=== PATIENT | male | born 1975 | race Caucasian/White ===

== ENCOUNTER 2017-10-14 06:27 | Emergency (ER) | END 2017-10-14 09:44 | disposition home or self-care (01) ==

== ENCOUNTER 2017-11-01 05:31 | Inpatient (IN) | END 2017-11-04 19:00 | disposition home or self-care (01) | DRG 520 ==

== ENCOUNTER 2018-10-24 05:18 | Inpatient (IN) | payer OTHER ==
[2018-10-18 12:29] VITALS: BMI 29.4
[2018-10-24] VITALS (21 sets, daily range): BP systolic 83–138; BP diastolic 45–74; PULSE 78–106; RESP 14–20; Ht 188 cm; Wt 105.2 kg
[~2018-10-24] VITALS: Ht 188 cm; Wt 105.2 kg
[~2018-10-24 05:18] MED LIST: BUPR100T14 PO; BUSP10TA2 PO; GLIP10TA14 PO; INSU300I SQ; METF100010 PO
[2018-10-24] MEDS ORDERED: THROMBIN (BOVINE) 5,000 UNIT VIAL TP ONE (06:46)
[2018-10-24] MEDS ORDERED: GELATIN SIZE 100 SPONGE ONE (06:46)
[2018-10-24] MEDS ORDERED: POLYMYXIN/BACITRACIN 1L IRRIG ONE (06:47)
[2018-10-24] MEDS ORDERED: BUPIVACAINE 0.25% (MPF) 30 ML INJ ONE (06:47)
--- NOTE | 2018-10-24 06:57 | HPN ---
Date/Time of Note Date/Time of Note DATE: 10/24/18 TIME: 06:57 Interval H&P Admission Note Pt. seen H&P reviewed: No system changes ADEN BLAND MD Oct 24, 2018 06:57
--- NOTE | 2018-10-24 06:58 | PREAC ---
Date/Time of Note Date/Time of Note DATE: 10/24/18 TIME: 06:57 Anesthesia Eval and Record Evaluation Time Pre-Procedure Interview DATE: 10/24/18 TIME: 06:57 Age 43 Sex male NPO: 8 hrs Preoperative diagnosis lumbar radiculopathy Planned procedure redo lumbar microdiscectomy Past Medical History Past Medical History: Includes Endo: Diabetes Neuro: Peripheral neuropathy Psych: Depression, Anxiety Surgery & Anesthesia Issues No known issue Meds Anticoagulation: No Beta Madai within 24 hr: No Reason Beta Madai not given: Pt. not on B-Madai Reported Medications Buspirone Hcl* (Buspirone Hcl*) 10 Mg Tab, 10 MG PO BID, TAB 10/18/18 Bupropion Hcl* (Bupropion Hcl*) 100 Mg Tablet, 100 MG PO BID, TAB 10/18/18 Insulin Glargine,Hum.rec.anlog (Felecia Barron) 300 Unit/1 Ml Insuln.pen, 10 UNIT SQ HS, EA 10/28/17 Glipizide* (Glipizide*) 10 Mg Tablet, 10 MG PO TID, TAB 10/28/17 Metformin Hcl* (Metformin Hcl*) 1,000 Mg Tablet, 1000 MG PO BID, #30 TAB 10/28/17 Discontinued Reported Medications Amoxicillin* (Amoxicillin*) 500 Mg Cap, 500 MG PO BID, #20 CAP 11/01/17 Current Medications Cefazolin Sodium/ Dextrose 50 ml @ 100 mls/hr PRE-OP ONCE IVPB Last administered on 10/24/18at 06:35; Admin Dose 100 MLS/HR; Start 10/24/18 at 07:00; Stop 10/24/18 at 07:29 Lactated Ringer's 1,000 ml @ 0 mls/hr Q0M ONCE IV* Last administered on 10/24/18at 06:37; Admin Dose 25 MLS/HR; Start 10/24/18 at 07:00; Stop 10/24/18 at 07:01 Meds reviewed: Yes Allergies Coded Allergies: No Known Allergy (Unverified , 11/01/17) Allergies Reviewed: Yes Labs/Studies Labs Reviewed: Reviewed by anesthesiologist Blood Bank Test 10/24/18 06:23 Blood Product Summary Counts test: N/A Studies: ECG Pre-procedure Exam Last vitals Vital Signs Date Temp Pulse Resp B/P (MAP) Pulse Ox O2 O2 Flow FiO2 Time Delivery Rate 10/24/18 98.4 90 16 101/72 98 Room Air 05:30 (82) Airway: Adequate mouth opening, Adequate thyromental dist Mallampati: Mallampati III Teeth: Normal Lung: Normal Heart: Normal ASA Physical Status ASA physical status: 2 Emergency: None Planned Anesthetic General/MAC: ETT Planned Pain Management Parenteral pain med, Local by surgeon Pre-operative Attestations Prior to commencing anesthesia and surgery, the patient was re-evaluated, there was verification of: *The patient's identity *The results of appropriate recent lab work and preoperative vital signs *The above evaluation not changing prior to induction *Anesthetic plan, risk benefits, alternative and complications discussed with patient/family; questions answered; patient/family understands, accepts and wishes to proceed. JUANITA BAGLEY MD Oct 24, 2018 06:57
[2018-10-24] MEDS ORDERED: MEPERIDINE 25 MG INJ IV PRN (07:00)
[2018-10-24] MEDS ORDERED: LABETALOL HCL 20MG INJ IV PRN (07:00)
[2018-10-24] MEDS ORDERED: DIPHENHYDRAMINE 50 MG INJ IV PRN (07:00)
[2018-10-24] MEDS ORDERED: LORAZEPAM 2 MG INJ IV PRN (07:00)
[2018-10-24] MEDS ORDERED: FENTAnyl 50 MCG/ML VIAL ONE (07:00)
[2018-10-24] MEDS ORDERED: LEVALBUTEROL (NEB) 1.25 MG/0.5 ML AMP HHN PRN (07:00)
[2018-10-24] MEDS ORDERED: FENTAnyl 50 MCG/ML VIAL IV PRN ×2 (07:00)
[2018-10-24] MEDS ORDERED: hydrALAzine 20 MG INJ IV PRN (07:00)
[2018-10-24] MEDS ORDERED: MIDAZOLAM 1 MG/ML 2 ML INJ IV PRN (07:00)
[2018-10-24] MEDS ORDERED: ONDANSETRON 4 MG INJ IV PRN (07:00)
[2018-10-24] MEDS ORDERED: HYDROmorphONE 1 MG/5 ML IV SYRINGE IV PRN ×3 (07:00)
[2018-10-24] MEDS ORDERED: CEFAZOLIN 2 GM/50 ML (PMX) 50 ML IVPB ONE (07:00)
[2018-10-24] MEDS ORDERED: IPRATROPIUM (NEB) 0.5 MG/2.5 ML AMP HHN PRN (07:00)
[2018-10-24] MEDS ORDERED: HALOPERIDOL 5 MG INJ IV PRN (07:00)
[2018-10-24] MEDS ORDERED: LACTATED RINGER'S 1,000 ML IV* ONE (07:00)
[2018-10-24] MEDS ORDERED: ROCURONIUM 50 MG INJ ONE (07:01)
[2018-10-24] MEDS ORDERED: MIDAZOLAM 1 MG/ML 2 ML INJ ONE (07:01)
[2018-10-24] MEDS ORDERED: PROPOFOL 20 ML ONE ×2 (07:01→07:16)
[2018-10-24] MEDS ORDERED: METOCLOPRAMIDE 10 MG INJ ONE (07:01)
[2018-10-24] MEDS ORDERED: LIDOCAINE 2% (SDV) 5 ML INJ ONE (07:01)
[2018-10-24] MEDS ORDERED: SUCCINYLCHOLINE CHLORIDE 100 MG/5 ML SYG IV ONE (07:01)
[2018-10-24] MEDS ORDERED: ONDANSETRON 4 MG INJ ONE (07:01)
[2018-10-24] MEDS ORDERED: DEXAMETHASONE 4 MG/ML 5 ML INJ ONE (07:02)
[2018-10-24] MEDS ORDERED: INSU300I SQ (07:03)
[2018-10-24] MEDS ORDERED: PHENYLephrine (100 MCG/ML) 10ML SYG ONE (07:36)
[2018-10-24] MEDS ORDERED: SURGIFOAM POWDER 1 GM KIT ONE (09:02)
[2018-10-24] MEDS ORDERED: SUGAMMADEX SODIUM 200 MG/2 ML VIAL IV ONE (09:22)
--- NOTE | 2018-10-24 10:07 | PAC ---
Date/Time of Note Date/Time of Note DATE: 10/24/18 TIME: 10:07 Post-Anesthesia Notes Post-Anesthesia Note Last documented vital signs Vital Signs Date Temp Pulse Resp B/P (MAP) Pulse Ox O2 O2 Flow FiO2 Time Delivery Rate 10/24/18 98.1 10:04 10/24/18 90 16 101/72 98 Room Air 05:30 (82) Activity: WNL Respiratory function: WNL Cardiovascular function: WNL Mental status: Baseline Pain reasonably controlled: Yes Hydration appropriate: Yes Nausea/Vomiting absent: Yes JUANITA BAGLEY MD Oct 24, 2018 10:07
[2018-10-24] MEDS: SOD CHLORIDE 0.45% 1,000 ML IV SCH ×2 (10:14→20:13)
--- NOTE | 2018-10-24 10:24 | SIPON ---
Date/Time of Note Date/Time of Note DATE: 10/24/18 TIME: 10:21 Operative Report Preoperative Diagnosis Recurrent disc herniation L4-5 and L5-S1 on the left with stenosis Postoperative Diagnosis Same Operation/Procedure Performed Redo central decompressive laminectomy at L4 Redo central decompressive laminectomy at L5 Redo microdiscectomy L4-5 on the left Redo microdiscectomy at L5-S1 on the left Medial facetectomy and foraminotomy at L4-5 and L5-S1 bilaterally Revision of scar (10 cm) Lateral localizing lumbar radiographs (1) Intraoperative nerve monitoring (3 hours) Surgeon see signature line assisted sales representative Jamie Rodrigez MD Anesthesia: general Estimated blood loss: 50 - 100 ml's Transfusion Required none Specimen Disc material L4-5 and L5-S1 Spinous processes of L4 and L5 Grafts/Implants none Complications none ADEN BLAND MD Oct 24, 2018 10:24
[2018-10-24] MEDS ORDERED: BETHANECHOL 25 MG TAB PO PRN (10:30)
[2018-10-24] MEDS ORDERED: ACETAMINOPHEN 325 MG TAB PO PRN (10:30)
[2018-10-24] MEDS ORDERED: DIAZEPAM 5 MG/ML SYG IM PRN (10:30)
[2018-10-24] MEDS ORDERED: PROCHLORPERAZINE 10 MG TAB PO PRN (10:30)
[2018-10-24] MEDS ORDERED: TRIMETHOBENZAMIDE 100 MG/ML VIAL IM PRN (10:30)
[2018-10-24] MEDS ORDERED: NALOXONE (0.4 MG/ML) INJ IV PRN (10:30)
[2018-10-24] MEDS ORDERED: HYDROmorphONE 0.2 MG/ML PCA IV SCH (10:30)
[2018-10-24] MEDS ORDERED: AL HYDROX/MG HYDROX/SIMETH 30 ML CUP PO PRN (10:30)
[2018-10-24] MEDS ORDERED: NACL 0.9% 3 ML SYG IV SCH (10:30)
[2018-10-24] MEDS ORDERED: CEPASTAT LOZENGE MT PRN (10:30)
[2018-10-24] MEDS ORDERED: DIPHENHYDRAMINE 50 MG CAP PO PRN (10:30)
[2018-10-24] MEDS ORDERED: ZOLPIDEM 5 MG TAB PO PRN (10:30)
[2018-10-24] MEDS ORDERED: HYDROCODONE/APAP (5/325) TAB PO PRN ×2 (10:30)
[2018-10-24] MEDS: CEFAZOLIN 1 GM/50 ML (PMX) 50 ML IVPB SCH ×3 (11:32→23:48)
--- NOTE | 2018-10-24 11:33 | OPR ---
DATE OF OPERATION: 10/24/2018 PREOPERATIVE DIAGNOSES: 1. 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 2. Lumbar spinal stenosis at L4 and L5. POSTOPERATIVE DIAGNOSES: 1. 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 2. Lumbar spinal stenosis at L4 and L5. OPERATION PERFORMED: 1. Redo central decompressive laminectomy at L4. 2. Redo central decompressive laminectomy at L5. 3. Redo microdiskectomy L4-5 on the left. 4. Redo microdiskectomy L5-S1 on the left. 5. Medial facetectomy and foraminotomy, L4-L5 and L5-S1 bilaterally. 6. Revision of scar (10 cm). 7. Lateral localized lumbar radiograph (1). 8. Intraoperative nerve monitoring (3 hours). SURGEON: Dennis Salgado MD [employer] OPERATOR: Miguel Rodrigez MD ANESTHESIA: Endotracheal. ANESTHESIOLOGIST: Dr. Barkley. ESTIMATED BLOOD LOSS: 60 mL, none replaced. DRAINS: Two medium Hemovac drains employed. COMPLICATIONS: None. PERTINENT HISTORY AND PHYSICAL: This is a 43-year-old male with persistent recurrent back and left l eg pain which has been unrelieved by conservative management. He has undergone a number of diagnosti c studies including an MRI of the lumbar spine, which demonstrated recurrent disk herniations at L4-L 5 and L5-S1 on the left, along with canal stenosis at both levels. Treatment options were discussed with the patient, who elected to proceed with surgery. OPERATIVE FINDINGS AT SURGERY: Recurrent disk herniations at L4-L5 and L5-S1 on the left were confir med, along with moderate central stenosis and lateral recess stenosis at both levels. The baseline i ntraoperative nerve monitoring revealed decrease in the left L4 potential of 30%, the left L5 potenti al of 40%. These all returned to normal at the completion of surgery. OPERATIVE PROCEDURE: With the patient in supine position after satisfactory induction of general end otracheal anesthesia by Dr. Barkley, the patient was turned to the prone kneeling position over the [facility] frame. All pressure points were carefully padded. Back was prepped and draped in usual steri le fashion. Athrombic pumps were applied to the legs below the knees to prevent venous stasis during and after procedure. An indwelling Ivory catheter was also placed preoperatively to facilitate blad suni drainage during and after procedure. A 10 cm incision carried out midline through the previous scar after skin was infiltrated with 0.25% Marcaine without epinephrine for postoperative analgesia. Superficial retractors were placed and hem ostasis secured with electrocautery. Throughout the procedure, copious amounts of antibacterial irri gating solution used to periodically irrigate the wound. The fascia was incised in midline with a ho t knife and bilateral subperiosteal dissection carried out at L4 and L5. Deep retractors were placed and deep hemostasis secured with electrocautery. An intraoperative radiograph was then taken with K ocher clamps placed in what was felt to be the spinous process of L4 and L5. This was confirmed on t he x-ray. A central decompressive laminectomy was then carried out using a Rashawn right-angle bone rongeur, Leksell rongeur, Kerrison punches and curettes at L4-L5 and L5-S1. The operating microscope was then moved into place. A medial facetectomy and foraminotomy was accomplished using small hand osteotome mallet, Kerrison punches and curettes. The L5 root on the left was then mobilized medially and protected with D'Errico nerve retractor using microdissection technique. This revealed a small recurrent disk herniation at L4-L5 on the left. A 15 blade knife used to cut a rectangular window in the annulus and posterior longitudinal ligament. Multiple degenerative disk fragments were harveste d with pituitary rongeurs and sent to laboratory for pathologic study. Additional fragments were brandon vested using Aurora curettes. A thorough search of the floor of the canal was made with an arthrosc opic probe. No additional fragments were encountered. The epidural hemostasis was secured with bipo lar electrocautery on low setting. The anesthesiologist was asked to perform a Valsalva maneuver at 40 mmHg. No spinal fluid leak was noted. Attention was then turned to the L5-S1 level where the S1 root was mobilized medially on the left and protected with D'Errico nerve retractor using microdissection technique. This revealed a recurrent disk herniation at L5-S1 on the left. A 15 blade knife used to cut and window in the annulus and pos terior longitudinal ligament and multiple degenerative disk fragments were harvested with pituitary r ongeurs and sent to laboratory for pathologic study. Additional fragments were harvested using Epste in curettes. A thorough search of the floor of the canal was made with an arthroscopic probe. No ad ditional fragments were encountered. The epidural hemostasis was secured with bipolar electrocautery on a low setting. A second Valsalva maneuver at 40 mmHg revealed no leakage of spinal fluid. The w ound was then closed in layers over 2 medium Hemovac drains, one below the fascia, one above the fasc ia, using #1 Stratafix suture in deep parallel musculature and deep fascia of the back, 2-0 interrupt ed Vicryl sutures and 2-0 Stratafix sutures in subcu tissue, and a 4-0 Vicryl subcuticular cosmetic c losing suture on the skin. Dermabond and sterile compressive dressings were applied. Patient tolera jenifer the procedure well, was then turned to supine position on his bed and extubated by Dr. Barkley. Fabrice gomes was transported to the recovery room in satisfactory condition. At the conclusion of procedure, sp onge, instrument, and needle counts were all correct. NEED FOR ENGRAVER RUBBER: During this spinal surgical procedure, my assistant professor of history was used to retract and protect the spinal nerves and dural sac. My assistant professor of history also employed the suction catheters to mike tiffanie blood from the surgical field to improve visualization of the neural structures. The assistant professor of history was medically necessary to facilitate the completion of the surgery in a safe and expeditious manner. State of [place] regulations, as well as hospital bylaws, preclude the use of non-licensed health care personnel such as operating room technicians, to perform these functions. Throughout the procedure, neural monitoring was carried out by [employer] [facility] including EMG, SSEP a nd MEP monitoring of the L3, L4, L5 and S1 nerve roots bilaterally, along with spinal cord potentials . These were interpreted in real time by Dr. Ady Christopher. Dictated By: DENNIS SALGADO MD TM/NTS Conf#: [id number] DID#: [id number] CC: MIGUEL RODRIGEZ MD; ASTRID SANCHEZ MD;*[facility]*
[2018-10-24] MEDS ORDERED: [UNRECOGNIZED DRUG - OTHER] SQ SCH (14:00)
[2018-10-24] MEDS ORDERED: INSULIN GLARGINE HUM REC ANLOG 14 UNIT SQ SCH (14:00)
[2018-10-24] MEDS: ONDANSETRON 4 MG INJ IV PRN ×2 (14:09→20:14)
[2018-10-24] MEDS ORDERED: GLUCOSE GEL 15 GRAM TUBE PO PRN ×2 (14:30)
[2018-10-24] MEDS ORDERED: GLUCOSE GEL 15 GRAM TUBE BUCCAL PRN (14:30)
[2018-10-24] MEDS ORDERED: GLUCAGON 1 MG INJ IM PRN (14:30)
[2018-10-24] MEDS ORDERED: DEXTROSE 50% 50 ML SYRINGE IV PRN ×2 (14:30)
--- NOTE | 2018-10-24 14:58 | CONS ---
DATE OF ADMISSION: 10/24/2018 DATE OF CONSULTATION: 10/24/2018 TYPE OF CONSULTATION: Medical. Thank you, Dr. Bland, for asking me to participate in medical management of this patient. REASON FOR CONSULTATION: To manage the patient's diabetes mellitus. HISTORY OF PRESENT ILLNESS: This 43-year-old man injured his back at work in 06/2015. He had a lumb ar spine surgery last year; however, he continues to have low back pain with radiation down his left leg. The patient has failed medical therapy and is to undergo surgery by Dr. Bland. Has failed m edical therapy and is now postop lumbar spine surgery by Dr. Bland. The patient is awake and aler t. He denies chest pain or shortness of breath. He is having some incisional back pain and is being treated with pain medication. PAST MEDICAL HISTORY: Remarkable for type 2 diabetes mellitus. He does have a history of a callus o n his left heel that took 6 months to heal. He did have a noninvasive lower extremity arterial study which was normal. 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 SOCIAL HISTORY: Patient is . He does not smoke, drinks alcohol socially. PHYSICAL EXAMINATION: GENERAL: At this time reveals a well-developed man in no apparent distress. VITAL SIGNS: Temperature 98, pulse of 99, respirations 18, blood pressure 119/71, O2 saturation 98% on room air. HEENT: Head normocephalic. Eyes: Extraocular muscles intact. NOSE AND MOUTH: Normal. NECK: Supple. No neck vein distention. LUNGS: Clear to auscultation. HEART: Regular rhythm. No murmurs, gallops or rubs. ABDOMEN: Soft, nontender. EXTREMITIES: No peripheral edema. IMPRESSION: This patient is stable after having a lumbar spine surgery today. He underwent redo of a central decompressive laminectomy at L4 and at L5 and a redo microdiscectomy at the L4-L5 level on the left and the L5-S1 level on the left. He is doing well. He is awake and alert. He does have so me low back incisional pain which is being treated. PLAN: 1. Resume some routine medications. 2. Check labs in the morning. 3. Insulin sliding scale to control blood sugar. 4. Lumbosacral spine surgery protocol. 5. I will follow the patient along with you medically. Dictated By: ASTRID SANCHEZ MD ND/NTS Conf#: [id number] DID#: [id number] CC: ADEN BLAND MD;*End*
[2018-10-24] MEDS ORDERED: INSULIN GLARGINE [LANTus] (100 UNITS/ML) SYG SC SCH (15:00)
[2018-10-24] MEDS: INSULIN ASPART [NOVOLOG] 3 ML PEN SC SCH ×2 (18:02→21:35)
[2018-10-24] MEDS: RANITIDINE 150 MG TAB PO SCH (20:14)
[2018-10-24] MEDS: BUSPIRONE 10 MG TAB PO SCH (20:19)
[2018-10-24] MEDS: BUPROPION 100 MG TAB PO SCH (20:19)
[2018-10-24] MEDS: INSULIN GLARGINE [LANTus] (100 UNITS/ML) SYG SC SCH (22:04)
[2018-10-25 04:17] VITALS: BP 97/64; PULSE 89; RESP 16
[2018-10-25] MEDS: CEFAZOLIN 1 GM/50 ML (PMX) 50 ML IVPB SCH (05:28)
[2018-10-25] MEDS: SOD CHLORIDE 0.45% 1,000 ML IV SCH ×2 (06:14→16:14)
--- NOTE | 2018-10-25 07:07 | PN ---
Date/Time of Note Date/Time of Note DATE: 10/25/18 TIME: 07:05 Assessment/Plan Lines/Catheters IV Catheter Type (from Nrsg): Saline Lock Ivory in Place (from Nrsg): Yes Subjective 24 Hr Interval Summary The patient is postop day #1 following a redo decompressive laminectomy at L4 and L5 with microdiscectomy L4-5 and L5-S1 on the left. He is resting comfortably, but complaining of low back pain. Neurovascular structures are intact distally. A.m. lab work is unremarkable with exception of hyperglycemia. Hemovac drainage since midnight was 50 cc and it will be left in place. He will be mobilized as tolerated by PT. He has a Ivory catheter in place which will be discontinued. Exam/Review of Systems Vital Signs Vitals Vital Signs Date Temp Pulse Resp B/P (MAP) Pulse Ox O2 O2 Flow FiO2 Time Delivery Rate 10/25/18 18 05:00 10/25/18 98.7 89 97/64 (75) 98 Room Air 04:17 Intake and Output 10/24/18 10/24/18 10/25/18 1515:00 23:00 07:00 IntakeIntake Total 2550 ml 175 ml 600 ml OutputOutput Total 190 ml 2130 ml 3250 ml BalanceBalance 2360 ml -1955 ml -2650 ml Results Result Diagram: 10/25/18 0449 10/25/18 0449 ADEN BLAND MD Oct 25, 2018 07:07
[2018-10-25] MEDS ORDERED: BETHANECHOL 25 MG TAB PO PRN (08:00)
[2018-10-25] MEDS: DIAZEPAM 5 MG TAB PO PRN ×3 (08:07→13:19)
[2018-10-25] MEDS: ONDANSETRON 4 MG INJ IV PRN ×2 (08:08→15:29)
[2018-10-25 08:29] VITALS: BP 107/76; PULSE 85; RESP 18
[2018-10-25] MEDS: BUSPIRONE 10 MG TAB PO SCH ×3 (09:00→21:00)
[2018-10-25] MEDS: BUPROPION 100 MG TAB PO SCH ×3 (09:00→21:00)
[2018-10-25] MEDS: RANITIDINE 150 MG TAB PO SCH ×2 (09:36→20:49)
[2018-10-25] MEDS: ASCORBIC ACID 500 MG TAB PO SCH ×2 (09:37→20:49)
[2018-10-25] MEDS: FERROUS SULFATE (EC) 325 MG TAB PO SCH ×3 (09:38→20:48)
[2018-10-25] MEDS: DOCUSATE SODIUM 100 MG CAP PO SCH ×2 (09:38→20:48)
[2018-10-25] MEDS: INSULIN ASPART [NOVOLOG] 3 ML PEN SC SCH ×5 (09:44→21:00)
--- NOTE | 2018-10-25 14:06 | CONS ---
Assessment/Plan Assessment/Plan Hospital Course (Demo Recall) 1.This patient is now 1 day postop a lumbar sacral spine surgery. He is having back and left leg pain. He is being treated with [place]. 2 his vital signs and laboratory tests are stable. He has been afebrile. 3 physical therapy as tolerated. I will restart the Metformin as his serum cre atinine is normal. Consultation Date/Type/Reason Admit Date/Time Oct 24, 2018 at 05:18 Initial Consult Date Type of Consult Medicine Date/Time of Note DATE: 10/25/18 TIME: 14:03 24 HR Interval Summary Free Text/Dictation This patient is now 1 day postop a lumbar sacral spine surgery. He is awake and alert. He is still having some incisional back pain. He got up earlier and became dizzy and had some nausea with vomiting. He is now off the Dilaudid CASINO FLOOR RUNNER. Exam/Review of Systems Exam Vitals Vital Signs Date Temp Pulse Resp B/P (MAP) Pulse Ox O2 O2 Flow FiO2 Time Delivery Rate 10/25/18 98.2 85 18 107/76 99 Room Air 08:29 (86) Intake and Output 10/24/18 10/24/18 10/25/18 1515:00 23:00 07:00 IntakeIntake Total 2550 ml 175 ml 600 ml OutputOutput Total 190 ml 2130 ml 3250 ml BalanceBalance 2360 ml -1955 ml -2650 ml Constitutional: alert, oriented, well developed Respiratory: clear to auscultation, normal air movement Cardiovascular: regular rate and rhythm Gastrointestinal: soft, non-tender Musculoskeletal: nl extremities to inspection Results Result Diagram: 10/25/18 0449 10/25/18 0449 Results 24hrs Laboratory Tests Test 10/24/18 14:18 10/24/18 17:52 10/24/18 21:28 10/25/18 01:59 Bedside Glucose 206 247 H 240 H 235 H Test 10/25/18 04:49 10/25/18 09:33 10/25/18 09:45 10/25/18 12:55 Hemoglobin 13.4 L Hematocrit 37.5 L Sodium Level 138 Potassium Level 4.6 Chloride Level 103 Carbon Dioxide Level 27 Anion Gap 8 Blood Urea Nitrogen 15 Creatinine 0.65 Est Glomerular > 60 Filtrat Rate mL/min Glucose Level 192 Calcium Level 8.8 Bedside Glucose 139 202 Urine Color YELLOW Urine Clarity CLEAR Urine pH 5.0 Urine Specific 1.018 [place] Urine Ketones NEGATIVE Urine Nitrite NEGATIVE Urine Bilirubin NEGATIVE Urine Urobilinogen NEGATIVE Urine Leukocyte NEGATIVE Esterase Urine Microscopic 1 RBC Urine Microscopic 2 WBC Urine Mucus FEW A Urine Hemoglobin 1+ H Urine Glucose 1+ H Urine Total Protein NEGATIVE Medications Medication Current Medications Sodium Chloride 1,000 ml @ 100 mls/hr Q10H IV Last administered on 10/24/18at 20:13; Admin Dose 100 MLS/HR; Start 10/24/18 at 10:14 Acetaminophen/ Hydrocodone Bitart ([place] (5/325)) 1 tab Q4H PRN PO .PAIN 1-5; Start 10/24/18 at 10:30 Acetaminophen/ Hydrocodone Bitart ([place] (5/325)) 2 tab Q4H PRN PO .PAIN 6-10 Last administered on 10/25/18at 11:19; Admin Dose 2 TAB; Start 10/24/18 at 10:30 Zolpidem Tartrate (Ambien) 5 mg HS PRN PO .INSOMNIA; Start 10/24/18 at 10:30 Prochlorperazine (Compazine) 10 mg Q4H PRN PO NAUSEA/VOMITING; Start 10/24/18 at 10:30 Trimethobenzamide HCl (Tigan) 200 mg Q4H PRN IM NAUSEA/VOMITING Last administered on 10/24/18at 19:09; Admin Dose 200 MG; Start 10/24/18 at 10:30 Ondansetron HCl (Zofran Inj) 4 mg Q6H PRN IV NAUSEA/VOMITING Last administered on 10/25/18at 08:08; Admin Dose 4 MG; Start 10/24/18 at 10:30 Al Hydrox/Mg Hydrox/Simethicone (Mag-Al Plus) 15 ml Q4H PRN PO .CONSTIPATION; Start 10/24/18 at 10:30 Docusate Sodium (Colace) 100 mg BID PO Last administered on 10/25/18at 09:38; Admin Dose 100 MG; Start 10/25/18 at 09:00 Acetaminophen (Tylenol Tab) 650 mg Q4H PRN PO TEMP GREATER THAN 101F OR BEAVERS; Start 10/24/18 at 10:30 Ascorbic Acid (Vitamin C) 1,000 mg BID PO Last administered on 10/25/18at 09:37; Admin Dose 1,000 MG; Start 10/25/18 at 09:00 Ferrous Sulfate (Ferrous Sulfate (Ec)) 325 mg TID PO Last administered on 10/25/18at 13:02; Admin Dose 325 MG; Start 10/25/18 at 09:00 Ranitidine HCl (Zantac) 150 mg BID PO Last administered on 10/25/18at 09:36; Admin Dose 150 MG; Start 10/24/18 at 21:00 Diazepam (Valium) 5 mg Q4H PRN PO .MUSCLE SPASM Last administered on 10/25/18at 13:19; Admin Dose 5 MG; Start 10/24/18 at 10:30 Diazepam (Valium) 5 mg Q4H PRN IM .MUSCLE SPASM; Start 10/24/18 at 10:30 Phenol (Cepastat Lozenge) 1 lozenge PRN PRN MT .SORE THROAT; Start 10/24/18 at 10:30 Diphenhydramine HCl (Benadryl) 50 mg Q6H PRN PO .PRURITUS; Start 10/24/18 at 10:30 IV Flush (NS 3 ml) 3 ml PER PROTOCOL IV ; Start 10/24/18 at 10:30 Hydromorphone HCl (Dilaudid CASINO FLOOR RUNNER) Q4PCA IV Last administered on 10/24/18at 10:44; Admin Dose 6 MG; Start 10/24/18 at 10:30 Naloxone HCl (Narcan) 0.2 mg Q2M PRN IV RR 8 BREATHS/MIN OR LESS; Start 10/24/18 at 10:30 Bupropion HCl (Wellbutrin) 100 mg BID PO ; Start 10/24/18 at 21:00 Buspirone HCl (Buspar) 10 mg BID PO ; Start 10/24/18 at 21:00 Insulin Aspart (Novolog Insulin Pen) NOVOLOG *MILD* ALGORITHM WITH MEALS BEDTIME SC Last administered on 10/25/18at 13:02; Admin Dose 2 UNIT; Start at 17:55 Miscellaneous Information 1 ea NOTE XX ; Start 10/24/18 at 14:30 Glucose (Glutose) 15 gm Q15M PRN PO DECREASED GLUCOSE; Start 10/24/18 at 14:30 Glucose (Glutose) 22.5 gm Q15M PRN PO DECREASED GLUCOSE; Start 10/24/18 at 14:30 Dextrose (D50w Syringe) 25 ml Q15M PRN IV DECREASED GLUCOSE; Start 10/24/18 at 14:30 Dextrose (D50w Syringe) 50 ml Q15M PRN IV DECREASED GLUCOSE; Start 10/24/18 at 14:30 Glucagon (Glucagen) 1 mg Q15M PRN IM DECREASED GLUCOSE; Start 10/24/18 at 14:30 Glucose (Glutose) 15 gm Q15M PRN BUCCAL DECREASED GLUCOSE; Start 10/24/18 at 14:30 Insulin Glargine (Lantus) 14 units QHS SC Last administered on 10/24/18at 22:04; Admin Dose 14 UNITS; Start 10/24/18 at 22:00 Bethanechol Chloride (Urecholine) 25 mg PRN PRN PO UNABLE TO VOID; Start 10/25/18 at 08:00 ASTRID SANCHEZ MD Oct 25, 2018 14:06
[2018-10-25 15:02] VITALS: BP 115/79; PULSE 100; RESP 18
[2018-10-25] MEDS: OXYCODONE/ACETAMINOPHEN (10/325) TAB PO PRN ×2 (15:29→22:12)
[2018-10-25] MEDS ORDERED: OXYCODONE/ACETAMINOPHEN (5/325) TAB PO PRN (15:30)
[2018-10-25] MEDS ORDERED: metFORMIN 500 MG TAB PO SCH (17:55)
[2018-10-25 19:14] VITALS: BP 110/68; PULSE 100; RESP 18
[2018-10-25] MEDS: INSULIN GLARGINE [LANTus] (100 UNITS/ML) SYG SC SCH (20:55)
[2018-10-26 01:34] VITALS: BP 129/60; PULSE 64; RESP 16
[2018-10-26] MEDS: OXYCODONE/ACETAMINOPHEN (10/325) TAB PO PRN ×3 (01:39→16:13)
[2018-10-26] MEDS: SOD CHLORIDE 0.45% 1,000 ML IV SCH ×2 (02:14→12:14)
[2018-10-26] MEDS ORDERED: metFORMIN 500 MG TAB GTB SCH (07:50)
[2018-10-26] MEDS: INSULIN ASPART [NOVOLOG] 3 ML PEN SC SCH ×2 (08:21→12:58)
[2018-10-26] MEDS: ASCORBIC ACID 500 MG TAB PO SCH (08:22)
[2018-10-26] MEDS: DOCUSATE SODIUM 100 MG CAP PO SCH (08:23)
[2018-10-26] MEDS: RANITIDINE 150 MG TAB PO SCH (08:23)
[2018-10-26] MEDS: BUPROPION 100 MG TAB PO SCH (08:23)
[2018-10-26] MEDS: FERROUS SULFATE (EC) 325 MG TAB PO SCH ×2 (08:23→12:58)
[2018-10-26 08:24] VITALS: BP 107/68; PULSE 84; RESP 19
[2018-10-26] MEDS: BUSPIRONE 10 MG TAB PO SCH (08:24)
--- NOTE | 2018-10-26 08:52 | PN ---
Date/Time of Note Date/Time of Note DATE: 10/26/18 TIME: 08:51 Assessment/Plan Lines/Catheters IV Catheter Type (from Nrsg): Saline Lock Ivory in Place (from Nrsg): Yes Subjective 24 Hr Interval Summary The patient is postop day #2 following a redo decompressive laminectomy at L4 and L5 with microdiscectomy L4-5 and L5-S1 on the left. He is resting comfortably, but complaining of low back and left leg pain. Neurovascular structures are intact distally. Pain medications were changed yesterday from [place] to Percocet which he states is working better for him. He was only able to walk up one step yesterday with physical therapy and will be working with the [employer] again today. Hopefully he can be discharged later today if he is cleared by physical therapy and pain is well controlled. Exam/Review of Systems Vital Signs Vitals Vital Signs Date Temp Pulse Resp B/P (MAP) Pulse Ox O2 O2 Flow FiO2 Time Delivery Rate 10/26/18 98.7 84 19 107/68 95 Room Air 08:24 (81) Intake and Output 10/25/18 10/25/18 10/26/18 1515:00 23:00 07:00 IntakeIntake Total 500 ml 840 ml OutputOutput Total 10 ml 900 ml 1300 ml BalanceBalance 490 ml -60 ml -1300 ml Results Result Diagram: 10/25/18 0449 10/25/18 0449 NNAMDI DAWSON October 26, 2018 08:52
[2018-10-26] MEDS: ONDANSETRON 4 MG INJ IV PRN (12:18)
--- NOTE | 2018-10-26 13:44 | CONS ---
Assessment/Plan Assessment/Plan Hospital Course (Demo Recall) 1.This patient is now 2 days postop a lumbar sacral spine surgery. He is having less back and left leg pain. 3 He is tolerating more PT . I have increased the Metformin dose and blood sugars are coming under control . Consultation Date/Type/Reason Admit Date/Time Oct 24, 2018 at 05:18 Initial Consult Date Type of Consult Medicine Date/Time of Note DATE: 10/26/18 TIME: 13:40 24 HR Interval Summary Free Text/Dictation This patient is feeling better today . He is having less pain and has been up walking more . Constitutional: no complaints, improved Exam/Review of Systems Exam Vitals Vital Signs Date Temp Pulse Resp B/P (MAP) Pulse Ox O2 O2 Flow FiO2 Time Delivery Rate 10/26/18 98.7 84 19 107/68 95 Room Air 08:24 (81) Intake and Output 10/25/18 10/25/18 10/26/18 1515:00 23:00 07:00 IntakeIntake Total 500 ml 840 ml OutputOutput Total 10 ml 900 ml 1300 ml BalanceBalance 490 ml -60 ml -1300 ml Constitutional: alert, oriented, well developed Respiratory: clear to auscultation, normal air movement Cardiovascular: regular rate and rhythm Gastrointestinal: soft, non-tender Musculoskeletal: nl extremities to inspection Results Result Diagram: 10/25/189 10/25/18 0449 Results 24hrs Laboratory Tests Test 10/25/18 17:49 10/25/18 20:45 10/26/18 01:33 10/26/18 08:19 Bedside Glucose 291 H 321 H 188 149 Test 10/26/18 12:54 Bedside Glucose 152 Medications Medication Current Medications Sodium Chloride 1,000 ml @ 100 mls/hr Q10H IV Last administered on 10/24/18at 20:13; Admin Dose 100 MLS/HR; Start 10/24/18 at 10:14 Zolpidem Tartrate (Ambien) 5 mg HS PRN PO .INSOMNIA; Start 10/24/18 at 10:30 Prochlorperazine (Compazine) 10 mg Q4H PRN PO NAUSEA/VOMITING; Start 10/24/18 at 10:30 Trimethobenzamide HCl (Tigan) 200 mg Q4H PRN IM NAUSEA/VOMITING Last administered on 10/24/18at 19:09; Admin Dose 200 MG; Start 10/24/18 at 10:30 Ondansetron HCl (Zofran Inj) 4 mg Q6H PRN IV NAUSEA/VOMITING Last administered on 10/26/18 12:18; Admin Dose 4 MG; Start 10/24/18 at 10:30 Al Hydrox/Mg Hydrox/Simethicone (Mag-Al Plus) 15 ml Q4H PRN PO .CONSTIPATION; Start 10/24/18 at 10:30 Docusate Sodium (Colace) 100 mg BID PO Last administered on 10/26/18 08:23; Admin Dose 100 MG; Start 10/25/18 at 09:00 Acetaminophen (Tylenol Tab) 650 mg Q4H PRN PO TEMP GREATER THAN 101F OR BEAVERS; Start 10/24/18 at 10:30 Ascorbic Acid (Vitamin C) 1,000 mg BID PO Last administered on 10/26/18 08:22; Admin Dose 1,000 MG; Start 10/25/18 at 09:00 Ferrous Sulfate (Ferrous Sulfate (Ec)) 325 mg TID PO Last administered on 10/25/18 20:48; Admin Dose 325 MG; Start 10/25/18 at 09:00 Ranitidine HCl (Zantac) 150 mg BID PO Last administered on 10/26/18 08:23; Admin Dose 150 MG; Start 10/24/18 at 21:00 Diazepam (Valium) 5 mg Q4H PRN PO .MUSCLE SPASM Last administered on 10/25/18 13:19; Admin Dose 5 MG; Start 10/24/18 at 10:30 Diazepam (Valium) 5 mg Q4H PRN IM .MUSCLE SPASM; Start 10/24/18 at 10:30 Phenol (Cepastat Lozenge) 1 lozenge PRN PRN MT .SORE THROAT; Start 10/24/18 at 10:30 Diphenhydramine HCl (Benadryl) 50 mg Q6H PRN PO .PRURITUS Last administered on 10/26/18 04:56; Admin Dose 50 MG; Start 10/24/18 at 10:30 IV Flush (NS 3 ml) 3 ml PER PROTOCOL IV ; Start 10/24/18 at 10:30 Naloxone HCl (Narcan) 0.2 mg Q2M PRN IV RR 8 BREATHS/MIN OR LESS; Start 10/24/18 at 10:30 Bupropion HCl (Wellbutrin) 100 mg BID PO ; Start 10/24/18 at 21:00 Buspirone HCl (Buspar) 10 mg BID PO ; Start 10/24/18 at 21:00 Miscellaneous Information 1 ea NOTE XX ; Start 10/24/18 at 14:30 Glucose (Glutose) 15 gm Q15M PRN PO DECREASED GLUCOSE; Start 10/24/18 at 14:30 Glucose (Glutose) 22.5 gm Q15M PRN PO DECREASED GLUCOSE; Start 10/24/18 at 14:30 Dextrose (D50w Syringe) 25 ml Q15M PRN IV DECREASED GLUCOSE; Start 10/24/18 at 14:30 Dextrose (D50w Syringe) 50 ml Q15M PRN IV DECREASED GLUCOSE; Start 10/24/18 at 14:30 Glucagon (Glucagen) 1 mg Q15M PRN IM DECREASED GLUCOSE; Start 10/24/18 at 14:30 Glucose (Glutose) 15 gm Q15M PRN BUCCAL DECREASED GLUCOSE; Start 10/24/18 at 14:30 Insulin Glargine (Lantus) 14 units QHS SC Last administered on 10/25/18at 20:55; Admin Dose 14 UNITS; Start 10/24/18 at 22:00 Bethanechol Chloride (Urecholine) 25 mg PRN PRN PO UNABLE TO VOID; Start 10/25/18 at 08:00 Oxycodone/ Acetaminophen (Percocet (5/ 325)) 1 tab Q4H PRN PO MODERATE PAIN LEVEL 4-6; Start 10/25/18 at 15:30 Oxycodone/ Acetaminophen (Endocet (10/ 325)) 1 tab Q4H PRN PO PAIN LEVEL 6-10 Last administered on 10/26/18at 08:32; Admin Dose 1 TAB; Start 10/25/18 at 15:30 Insulin Aspart (Novolog Insulin Pen) NOVOLOG *MILD* ALGORITHM WITH MEALS BEDTIME SC Last administered on 10/26/18at 12:58; Admin Dose 1 UNIT; Start 09/28 at 20:54 Metformin HCl (Glucophage) 1,000 mg BID WITH MEALS GTB Last administered on 10/26/18at 08:22; Admin Dose 1,000 MG; Start 10/26/18 at 07:50 ASTRID SANCHEZ MD October 26, 2018 13:44
[2018-10-26 15:00] VITALS: BP 110/74; RESP 18
--- NOTE | 2018-10-31 09:03 | DS ---
Date/Time of Note Date/Time of Note DATE: 10/31/18 TIME: 09:02 Discharge Summary Admission/Discharge Info Admit Date/Time Oct 24, 2018 at 05:18 Discharge Date/Time October 26, 2018 at 16:20 Discharge Diagnosis 1. 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 2. Lumbar spinal stenosis at L4 and L5. Patient Condition: Good Hospital Course Patient did well postoperatively. His narcotic pain medications were adjusted and he had good pain control prior to discharge. His diet and activity were advanced as tolerated. He was discharged to home in good condition on postop day #2 with strict discharge and follow-up instructions. Home Meds Reported Medications Insulin Glargine,Hum.rec.anlog (Toujeo Solostar) 300 Unit/1 Ml Insuln.pen, 14 UNIT SQ DAILY, EA 10/24/18 Buspirone Hcl* (Buspirone Hcl*) 10 Mg Tab, 10 MG PO BID, TAB 10/18/18 Bupropion Hcl* (Bupropion Hcl*) 100 Mg Tablet, 100 MG PO BID, TAB 10/18/18 Glipizide* (Glipizide*) 10 Mg Tablet, 10 MG PO TID, TAB 10/28/17 Metformin Hcl* (Metformin Hcl*) 1,000 Mg Tablet, 1000 MG PO BID, #30 TAB 10/28/17 Discontinued Reported Medications Insulin Glargine,Hum.rec.anlog (Toujeo Solostar) 300 Unit/1 Ml Insuln.pen, 10 UNIT SQ HS, EA 10/28/17 Follow-up Plan Follow-up with Dr. Salgado in 1 to 2 weeks. Primary Care Provider Care Physician NNAMDI [place] October 31, 2018 09:03
== END 2018-10-26 16:20 | disposition home health service (06) | DRG 520 ==
LOC: REC 05:18 → MS1 10:34
PROVIDERS: ADMIT Orthopaedic Surgery; ATTEND Orthopaedic Surgery
PROC: 01NB0ZZ Release Lumbar Nerve, Open Approach (ICD-10-PCS; 2018-10-24)
PROC: 0SB40ZZ Excision of Lumbosacral Disc, Open Approach (ICD-10-PCS; 2018-10-24)
PROC: 4A11X4G Monitoring of Peripheral Nervous Electrical Activity, Intraoperative, External Approach (ICD-10-PCS; 2018-10-24)
PROC: 0SB20ZZ Excision of Lumbar Vertebral Disc, Open Approach (ICD-10-PCS; principal; 2018-10-24 07:00)
DX: M51.16 Intervertebral disc disorders with radiculopathy, lumbar region (principal); E11.42 Type 2 diabetes mellitus with diabetic polyneuropathy; M51.27 Other intervertebral disc displacement, lumbosacral region; M48.061 Spinal stenosis, lumbar region without neurogenic claudication; F32.9 Major depressive disorder, single episode, unspecified; Z79.4 Long term (current) use of insulin
CPT/HCPCS: 72020; 80048; 81001; 82962; 85014; 85018; 86850; 86900; 86901; 86920; 87086; 88304; 88311; 97116; 97161; 97530; J0690; J1100; J1170; J1815; J2175; J2250; J2370; J2405; J2765; J3010; J3250; J7120